=== PATIENT | male | born 1970 | race Caucasian/White ===

== ENCOUNTER → 2016-09-25 | Outpatient (CLI) | payer BC ==
--- NOTE | 2016-09-25 18:03 | CONS ---
DATE OF CONSULTATION: 09/25/2016 This 45-year-old gentleman has been referred to the sleep center by [facility] for evaluation of possible obstructive sleep apnea/hypopnea syndrome. 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 HISTORY OF PRESENT ILLNESS/SLEEP-WAKE EVALUATION: Patient's usual sleep schedule on working days is from 9 or 10 p.m. to 4 or 5 a.m., on weekends from 10 or 11 p.m. to 6 or 7 a.m. No problem falling asleep. No complaints about the environment when he sleeps. He has a TV set in the bedroom. He usually sleeps on the side position or in different positions. He wakes up from sleep once with snoring. He denied any significant sleepiness during the day. [place] Sleepiness Scale is 2. PAST MEDICAL HISTORY: Positive for diabetes. MEDICATIONS: Metformin. 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 SOCIAL HISTORY: Negative for smoking. Alcohol consumption occasional. REVIEW OF SYSTEMS: Basically negative. No fevers. No double vision. No recent chest pain. No shortness of breath. No abdominal pain. No bleeding episodes. No blood in urine. No seizure episodes. FAMILY HISTORY: Positive for snoring, diabetes. PHYSICAL EXAMINATION: GENERAL: A pleasant 45-year-old gentleman without distress. VITAL SIGNS: BP 142/103 on the right arm and 130/81 on the left arm. Pulse rate 90. RR 16. Height 5 feet 10 inches. Weight 299. BMI 42.9. Neck 19 inches in circumference. Temperature 98.5. Oxygen saturation at room air 97%. HEENT: PERRLA, EOMI. Evaluation of oropharynx showed tongue protrudes midline; retrognathia about 4 or 5 mm. Low position of soft palate. Very slight restriction of nasal breathing, but small nasal passages. NECK: Supple. No JVD. Thyroid is not palpable. LUNGS: Clear to percussion and to auscultation. Good air exchange. No wheezing or rhonchi. HEART: S1, S2 regular. No murmurs, gallops or rubs. ABDOMEN: Obese. EXTREMITIES: No clubbing or cyanosis. PASSENGER BARGE MASTER: Awake, alert, and oriented x3. Cranial nerves 2 to 7 intact. There is no fasciculation or atrophy noted. No focal deficits observed. IMPRESSION: 1. Snoring, extremely low position of soft palate, slight restriction of nasal breathing, retrognathia, wide neck; obstructive sleep apnea/hypopnea syndrome. 2. Obesity; body mass index 42.9. 3. Diabetes mellitus. 4. 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 5. Retrognathia. 6. Snoring. 7. 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 PLAN: 1. Polysomnography for evaluation of patient's breathing during sleep. 2. CPAP/BiPAP titration if sleep study confirms obstructive sleep apnea-hypopnea syndrome. 3. Preferable position during sleep on the side. 4. No driving if patient feels any sleepiness. Patient is aware of civil and criminal liability for unsafe driving. 5. I will see patient for follow-up visit to explain results of the testing and following plan. Thank you very much for referring this patient for consultation. Sincerely, Maik Butt MD, PhD, FAASM. Diplomat of [place] [employer], Sleep Medicine Board by [place] [employer] [employer] of [facility] [place]
== END | disposition home or self-care (01) ==
LOC: MERGE 14:10 → SLEEP 14:11
PROVIDERS: ATTEND Internal Medicine
DX: G47.33 Obstructive sleep apnea (adult) (pediatric) (principal); M26.19 Other specified anomalies of jaw-cranial base relationship; E66.9 Obesity, unspecified; Z68.41 Body mass index [BMI] 40.0-44.9, adult; E11.9 Type 2 diabetes mellitus without complications; Z98.890 Other specified postprocedural states
CPT/HCPCS: 99211

== ENCOUNTER → 2017-11-05 | Outpatient (CLI) | payer BC ==
[2017-11-05 08:03] LABS: Basophils % (A) 1 %; Eosinophils # (A) 0.3 k/uL (0-0.7); Eosinophils % (A) 4 %; HCT 51.3 % (39.0-53.0); HGB 16.5 gm/dL (13.0-17.5); Lymphocytes # (A) 1.6 k/uL (1.0-4.8); Lymphocytes % (A) 23 %; MCH 30.6 pg (25.0-35.0); MCHC 32.1 g/dL (31.0-37.0); MCV 95.4 fL (80.0-100.0); Mean Platelet Volume 7.3; Monocytes # (A) 0.6 k/uL (0-1.0); Monocytes % (A) 8 %; Neutrophils # (A) 4.4 k/uL (1.3-7.7); Neutrophils % (A) 63 %; Platelet Count 186 k/uL (150-450); RBC 5.38 m/uL (4.30-5.90); RDW 12.1 % (11.5-15.5); WBC 6.9 k/uL (3.8-10.6)
[2017-11-05 08:12] LABS: Appearance,Urine Clear (Clear); Bacteria,Urine Rare /hpf; Bilirubin,Urine Negative (Negative); Blood,Urine Negative (Negative); Color,Urine Yellow; Glucose,Urine (UA) Negative (Negative); Ketones,Urine Negative (Negative); Leukocyte Esterase,Urine Trace (Negative); Mucus,Urine Rare /hpf; PH, Urine 6.5 (5.0-8.0); Protein,Urine Trace (Negative); RBC,Urine 1 /hpf (0-5); Squamous Epithelial Cell,Urine 2 /hpf (0-4); Urobilinogen,Urine <2.0 mg/dL (<2.0); WBC,Urine 6 /hpf (0-5)
[2017-11-05 08:52] LABS: ALT 55 U/L (21-72); AST 39 U/L (17-59); Albumin 4.2 g/dL (3.5-5.0); Alkaline Phosphatase 53 U/L (38-126); Anion Gap 9 mmol/L; Blood Urea Nitrogen 12 mg/dL (9-20); Calcium 9.3 mg/dL (8.4-10.2); Carbon Dioxide 28 mmol/L (22-30); Chloride 102 mmol/L (98-107); Cholesterol 155 mg/dL (<200); Glucose 146 mg/dL (74-99); HDL Cholesterol 44 mg/dL (40-60); LDL Cholesterol,Calculated 90 mg/dL (0-99); Potassium 4.8 mmol/L (3.5-5.1); Sodium 139 mmol/L (137-145); Triglycerides 103 mg/dL (<150)
== END | disposition home or self-care (01) ==
LOC: LABWHC1 07:19
PROVIDERS: ATTEND Nurse Practitioner Family
DX: Z00.00 Encounter for general adult medical examination without abnormal findings (principal); I10 Essential (primary) hypertension; E66.9 Obesity, unspecified
CPT/HCPCS: 36415; 80053; 80061; 81001; 82306; 84443; 85025

== ENCOUNTER → 2017-11-12 | Outpatient (CLI) | payer BC ==
--- NOTE | 2017-11-12 18:59 | SFUN ---
SLEEP STUDY FOLLOW UP NOTE DATE OF SERVICE: 11/12/2017. SUBJECTIVE: This 47-year-old gentleman has been followed in Sleep Center for evaluation and treatment of obstructive sleep apnea-hypopnea syndrome. The patient had a home sleep apnea test on 11/25/2016, which showed that he has severe sleep apnea. At that time apnea-hypopnea index was 64.4 with oxygen desaturation to 71%, but he never returned back after the test was done. Today I explained the results of the test in detail. Subsequently, he understands that he has severe sleep apnea. His sleep schedule is about the same, from around 9 or 10 p.m. until 4 or 5 a.m. [place] Sleepiness Scale is 5. MEDICATIONS: Metformin and lisinopril. PHYSICAL EXAM: Patient is in no distress. BP 136/74, HR 84, RR 16, height 5 feet 10 inches, weight 296, BMI 43, temp 98.9, oxygen saturation room air 97%. Oropharynx extremely low position of soft palate. Abdomen obese, wide neck, 19-1/4 inch in circumference. HEENT PERRLA, EOMI, evaluation of oropharynx showed tongue protrudes midline. Neck Supple, no JVD. Thyroid is not palpable. LUNGS Clear to percussion and to auscultation. Good air exchange. No wheezing or rhonchi. HEART S1, S2 regular. No murmurs, gallops, or rubs. ABDOMEN Obese, soft and nontender. Bowel sounds are present. No organomegaly appreciated. EXTREMITIES No clubbing or cyanosis. CEMENT MASON HELPER Awake, alert, and oriented X3. Cranial nerves 2 to 7 intact. There is no fasciculation or atrophy. noted. No focal deficits observed. IMPRESSION: 1. Severe obstructive sleep apnea-hypopnea syndrome. 2. Diabetes mellitus. 3. Hypertension. 4. Obesity. 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 PLAN: 1. Repeat home sleep apnea test for CPAP and treatment, insurance will not accept results which are more than 6 months old. 2. CPAP treatment. 3. Loosing weight. 4. Sleep hygiene with regular time in bed for at least 8 hours. 5. No driving if feeling sleepiness. Patient is aware about civil and criminal liability for unsafe driving. Thank you very much for allowing me to participate in management of your patient. MMODL / IJN: [id number] /
== END ==
LOC: SLEEP 16:23
PROVIDERS: ATTEND Internal Medicine
DX: G47.33 Obstructive sleep apnea (adult) (pediatric) (principal); E11.9 Type 2 diabetes mellitus without complications; I10 Essential (primary) hypertension; E66.9 Obesity, unspecified; Z79.84 Long term (current) use of oral hypoglycemic drugs; Z79.899 Other long term (current) drug therapy

== ENCOUNTER → 2018-03-17 | Outpatient (CLI) | payer BC ==
--- NOTE | 2018-03-17 18:29 | PN ---
PROGRESS NOTE DATE OF SERVICE: 03/17/2018 A 47-year-old gentleman who has been followed in sleep center for treatment of obstructive sleep apnea-hypopnea syndrome. Recently the patient had a home sleep apnea test and CPAP titration and discussed results of sleep studies with the patient. Home sleep apnea showed severe sleep apnea. Subsequently, patient had CPAP titration and was started on treatment with CPAP. Today is his first visit after he received his CPAP. The patient is able to use his CPAP equipment every night for the whole night without problem. He likes his mask. He feels significantly better with the CPAP regarding his sleep and feeling during the day. [place] Sleepiness Scale today is only 3. I checked CPAP unit. CPAP pressure of 13 cm of water as it was prescribed by me. Leak is only 4 L/minute, which is normal. Apnea-hypopnea index reading for the last month is only 0.9. Usage is 28/30 nights and 23/30 nights for more than 4 hours. Average usage 5.5 hours. MEDICATIONS: 1. Metformin. 2. Lexapro. PHYSICAL EXAMINATION: GENERAL Patient in no distress. VITAL SIGNS BP 140/78, HR 74, RR 20, weight 313.6, height 5 feet 10-1/2 inches, BMI 44.2, oxygen saturation on room air 97%. HEENT PERRLA, EOMI, evaluation of oropharynx showed tongue protrudes midline, extremely low position of soft palate. Neck Supple, no JVD. Thyroid is not palpable. Neck is 20 inches in circumference. LUNGS Clear to percussion and to auscultation. Good air exchange. No wheezing or rhonchi. HEART S1, S2 regular. No murmurs, gallops, or rubs. ABDOMEN Obese, soft and nontender. Bowel sounds are present. No organomegaly appreciated. EXTREMITIES No clubbing or cyanosis. DIVER TENDER Awake, alert, and oriented X3. Cranial nerves 2 to 7 intact. There is no fasciculation or atrophy. noted. No focal deficits observed. IMPRESSION: 1. Severe obstructive sleep apnea-hypopnea syndrome; apnea-hypopnea index 69 with oxygen desaturation 74% on full control with CPAP at 13 cm of water. Patient demonstrated good compliance with treatment, benefitting from treatment. 2. Obesity. 3. Diabetes mellitus. 4. Hypertension. 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 PLAN: 1. The patient should continue to use CPAP equipment every night for the whole night. 2. Aggressive losing weight. 3. Sleep hygiene with regular time bed for at least 7-/1/2-8 hours. 4. Precautions related to driving. No driving if feeling any sleepiness. The patient is aware about civil and criminal liability for unsafe driving. 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 Thank you very much for allowing me to participate in management of your patient. Sincerely, Maik Butt MD, PhD, FAASM Diplomat of [place] [employer] [employer] Medicine Hydraulic Boom Operator of [facility] MMODL / IJN: [id number] /
== END | disposition home or self-care (01) ==
LOC: SLEEP 16:00
PROVIDERS: ATTEND Internal Medicine
DX: G47.33 Obstructive sleep apnea (adult) (pediatric) (principal); E66.9 Obesity, unspecified; E11.9 Type 2 diabetes mellitus without complications; I10 Essential (primary) hypertension; Z68.41 Body mass index [BMI] 40.0-44.9, adult; Z79.84 Long term (current) use of oral hypoglycemic drugs; Z79.899 Other long term (current) drug therapy; Z99.89 Dependence on other enabling machines and devices

== ENCOUNTER → 2020-11-21 | Outpatient (CLI) | payer BC ==
--- NOTE | 2020-11-21 19:56 | SFUN ---
SLEEP CENTER FOLLOW UP NOTE DATE OF SERVICE: 11/21/2020 This is a 50-year-old gentleman who has been followed in Sleep Center for treatment of obstructive sleep apnea-hypopnea syndrome. The patient continues to use his CPAP equipment every night for the whole night. He does not snore with the machine but recently developed some episodes of chest discomfort which he believes may be related to the CPAP pressure. [place] Sleepiness Scale today is 3. I checked his CPAP unit. CPAP pressure is 13 cm of water, usage 30/30 nights for more than 4 hours. Average usage is 5.8 hours per night. Leak is 4 L/minute, which is perfect. Apnea-hypopnea index is only 1.2. MEDICATIONS: Metformin, lisinopril and Januvia. PHYSICAL EXAMINATION: GENERAL: A pleasant patient in no distress. VITAL SIGNS: BP 138/87, HR 76, RR 18, height 5 feet 10-1/2 inches, weight 312.8 pounds, temperature 98.1, oxygen saturation at room air 98%. HEENT: PERRLA, EOMI. Evaluation of oropharynx showed tongue protrudes midline. Extremely low position of soft palate. Mallampati IV. NECK: Supple. No JVD. Thyroid is not palpable. LUNGS: Clear to percussion and to auscultation. Good air exchange. No wheezing or rhonchi. HEART: S1, S2 regular. No murmurs, gallops or rubs. ABDOMEN: Obese. EXTREMITIES: No clubbing or cyanosis. SAP GATHERER: Awake, alert, and oriented X3. Cranial nerves 2 to 7 intact. There is no fasciculation or atrophy. noted. No focal deficits observed. IMPRESSION: 1. Severe obstructive sleep apnea-hypopnea syndrome; apnea-hypopnea index 69 with oxygen desaturation to 74%. The patient demonstrated 100% compliance with treatment, benefitting from treatment. 2. Hypertension. 3. Diabetes mellitus. 4. Obesity. 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 PLAN: 1. I changed the regimen of the CPAP unit to automatic with range of pressure 5 to 13 cm of water. Consequently the pressure in the machine could be less than 13 during the night. I expect that should prevent any chest discomfort. 2. Patient will continue to use PAP equipment every night for the whole night. 3. Sleep hygiene with regular time in bed for at least 7-1/2 to 8 hours. 4. Precautions related to driving. No driving if feeling sleepiness. 5. I will maintain all necessary prescription for PAP supplies including mask, tube, filters. 6. Losing weight. 7. Follow-up visit in 6 months or earlier if patient has any problems. 8. If the patient continues to have any discomfort in the chest, return to the sleep center immediately. I will decrease the pressure. Thank you very much for allowing me to participate in the management of your patient. Sincerely, Maik Butt MD, PhD, FAASM Diplomat of [place] [employer] [employer] Medicine Procurement Technician of [facility] [place] MMODL / IJN: [id number] /
== END | disposition home or self-care (01) ==
LOC: SLEEP 15:51
PROVIDERS: ATTEND Internal Medicine
DX: G47.33 Obstructive sleep apnea (adult) (pediatric) (principal); I10 Essential (primary) hypertension; E11.9 Type 2 diabetes mellitus without complications; E66.9 Obesity, unspecified

== ENCOUNTER → 2022-07-10 | Outpatient (CLI) | payer BC ==
--- NOTE | 2022-07-10 16:54 | P.PN ---
Subjective DATE: 07/10/2022 FOLLOW UP VISIT. Patient with obstructive sleep apnea hypopnea syndrome return to sleep center for follow-up visit. Information from previous visit have been reviewed. Patient is using PAP equipment every night for the whole night, getting PAP supplies in time. The patient does not have significant problems with the mask, PAP unit and humidification. [place] sleepiness scale is 3, which is normal. I checked information from PAP unit. PAP unit pressure 5-13, average 13 cm H2O. Usage is every night and the 80 % for more then 4 hours, average 4.6 hours per night. Leak is 7 l/m, which is in acceptable range. Apnea Hypopnea Index is 1.5, which is normal. MEDICATIONS:1. Metformin 2. Glipizide 3. Lisinopril During physical exam: GENERAL: A pleasant patient without any distress. VITAL SIGNS: BP 127/81, HR 82, RR 16, weight 297.2, temperature 98.0, oxygen saturation at room air 96 % . HEENT: PERRLA, EOMI.low position of soft palate, Mallapati 4 . NECK: Supple. No JVD. LUNGS: Clear to percussion and to auscultation. Good air exchange. No wheezing or rhonchi. HEART: S1, S2 regular. ABDOMEN: Soft and nontender. Obese EXTREMITIES: No clubbing or cyanosis. CONTROL SYSTEMS DRAFTING OFFICER: Awake, alert, and oriented x3. No focal deficit. Impressions: 1. Obstructive sleep apnea-hypopnea syndrome. Patient demonstrated great compliance with treatment, benefiting from treatment. 2. Diabetes mellitus. 3. Hypertension. 4. Obesity. 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 Plan: 1. Continue using PAP equipment every night for the whole night. 2. To change air filter at least 1-2 times per month. 3. PAP unit should stay lower then position of the head. 4. Advised patient to remove all remaining water from humidifier canister daily and make it dry after each usage. Refill canister with fresh distilled water before each usage. 5. Sleep hygiene with regular time in bed for at least 8 hours. 6. Precautions related to driving. No driving if feel any sleepiness. Patient promised to follow recommendations. Patient is aware about civil and criminal liability for unsafe driving. 7. I will maintain prescription for PAP supplies including mask, tube, filters. 8. Follow up visit in 6 months or earlier if patient has any problems. 9. Watching and losing weight. Thank you very much for allowing me to participate in the management of your patient. Maik Butt MD, PhD, FAASM. Diplomat of [place] Board [employer] Medicine, Sleep Medicine Board by [place] [employer] Medicine Health Occupations Instructor of [facility] [place]
== END | disposition home or self-care (01) ==
LOC: SLEEP 16:03
PROVIDERS: ATTEND Internal Medicine
DX: Z53.9 Procedure and treatment not carried out, unspecified reason (principal)
CPT/HCPCS: 99212

== ENCOUNTER → 2023-01-22 | Outpatient (CLI) | payer BC ==
--- NOTE | 2023-01-22 16:31 | P.PN ---
Subjective DATE: 01/22/2023 FOLLOW UP VISIT. Patient with obstructive sleep apnea hypopnea syndrome return to sleep center for follow-up visit. Information from previous visit have been reviewed. Patient is using PAP equipment every night for the whole night, getting PAP supplies in time. The patient does not have significant problems with the mask, PAP unit and humidification. [place] sleepiness scale is 4, which is normal. I checked information from PAP unit. PAP unit pressure 5-13, average 13 cm H2O. Usage is 100% and 63 % for more then 4 hours, average 4.5 hours per night. Leak is 8.4 l/m, which is in acceptable range. Apnea Hypopnea Index is 1.1, which is normal. MEDICATIONS:1. Lisinopril 40 mg once a day 2. Glimepiride 3. Metformin During physical exam: GENERAL: A pleasant patient without any distress. VITAL SIGNS: BP 125/82, HR 79, RR 16 , weight to 95.2, temperature 97.3, oxygen saturation at room air 98 % . HEENT: PERRLA, EOMI.low position of soft palate, Mallapati 4 . NECK: Supple. No JVD. LUNGS: Clear to percussion and to auscultation. Good air exchange. No wheezing or rhonchi. HEART: S1, S2 regular. ABDOMEN: Soft and nontender. Obese EXTREMITIES: No clubbing or cyanosis. CUSTOMER SERVICE AGENT: Awake, alert, and oriented x3. No focal deficit. Impressions: 1. Obstructive sleep apnea-hypopnea syndrome. Patient demonstrated good compliance with treatment, benefiting from treatment. 2. Obesity, body mass index 42.3, patient lost 2 pounds since previous visit. 3. Hypertension. 4. Diabetes mellitus. 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 Continue using PAP equipment every night for the whole night. 2. To change air filter at least 1-2 times per month. 3. PAP unit should stay lower then position of the head. 4. Advised patient to remove all remaining water from humidifier canister daily and make it dry after each usage. Refill canister with fresh distilled water before each usage. 5. Sleep hygiene with regular time in bed for at least 8 hours. 6. Precautions related to driving. No driving if feel any sleepiness. Patient is aware about civil and criminal liability for unsafe driving. 7. I will maintain prescription for PAP supplies including mask, tube, filters. 8. Watching and losing weight. 9. Follow up visit in 6 months or earlier if patient has any problems. Thank you very much for allowing me to participate in the management of your patient. Maik Butt MD, PhD, FAASM. Diplomat of [place] [employer] Medicine, Sleep Medicine Board by [place] [employer] Medicine Elevator Technician of [facility] [place]
== END ==
LOC: SLEEP 15:40
PROVIDERS: ATTEND Internal Medicine
DX: G47.33 Obstructive sleep apnea (adult) (pediatric) (principal); E66.9 Obesity, unspecified; Z68.41 Body mass index [BMI] 40.0-44.9, adult; E11.9 Type 2 diabetes mellitus without complications; Z99.89 Dependence on other enabling machines and devices; Z79.84 Long term (current) use of oral hypoglycemic drugs; Z79.899 Other long term (current) drug therapy
CPT/HCPCS: 99212

== ENCOUNTER → 2023-12-23 | Outpatient (CLI) | payer BC ==
[2023-12-23 11:22] LABS: Basophils # (A) 0.04 X 10*3/uL (0.00-0.10); Basophils % (A) 0.5 %; Eosinophils # (A) 0.29 X 10*3/uL (0.04-0.35); Eosinophils % (A) 3.9 %; HGB 16.4 g/dL (13.0-17.0); Lymphocytes # (A) 1.46 X 10*3/uL (0.90-5.00); Lymphocytes % (A) 19.8 %; MCH 31.1 pg (27.0-32.0); MCHC 33.5 g/dL (32.0-37.0); Mean Platelet Volume 10.5 FL (9.5-12.2); Monocytes # (A) 0.75 X 10*3/uL (0.20-1.00); Monocytes % (A) 10.2 %; NRBC Per 100 WBC 0 X 10*3/uL (0.00-0.01); Neutrophils # (A) 4.81 X 10*3/uL (1.80-7.70); Neutrophils % (A) 65.5 %; Platelet Count 212 X 10*3/uL (140-440); RBC 5.27 X 10*6/uL (4.40-5.60); RDW 12.1 % (11.5-14.5); WBC 7.36 X 10*3/uL (4.50-10.00)
[2023-12-23 11:36] LABS: ALT 46 U/L (10-49); AST 25 U/L (14-35); Albumin 4.2 g/dL (3.8-4.9); Albumin/Globulin Ratio 1.68 Ratio (1.60-3.17); Alkaline Phosphatase 76 U/L (41-126); Bilirubin, Conjugated 0.21 mg/dL (0.20-0.40); Bilirubin,Unconjugated 0.39 mg/dL (0.20-1.00); Calcium 9.8 mg/dL (8.7-10.3); Carbon Dioxide 28.4 mmol/L (21.6-31.8); Chloride 101 mmol/L (96-109); Chol/HDL Ratio 3.81 Ratio; Globulin 2.5 g/dL (1.6-3.3); Glucose 175 mg/dL (70-110); LDL Cholesterol,Calculated 89.6 mg/dL (0.0-131.0); Potassium 4.8 mmol/L (3.5-5.5); Sodium 141 mmol/L (135-145); Total Bilirubin 0.6 mg/dL (0.3-1.2); Total Protein 6.7 g/dL (6.2-8.2)
[2023-12-23 11:46] LABS: Hepatitis B Surface Antigen Nonreactive (Nonreactive); Hepatitis C IgG Antibody Nonreactive (Nonreactive)
[2023-12-23 11:52] LABS: Hepatitis B Surface AB- Quant 3.5 mIU/mL
== END | disposition home or self-care (01) ==
LOC: LABWHC1 06:56
PROVIDERS: ATTEND Nurse Practitioner Family
DX: L40.0 Psoriasis vulgaris (principal); L60.8 Other nail disorders
CPT/HCPCS: 36415; 80048; 80061; 80076; 85025; 86480; 86704; 86706; 86803; 87340